=== PATIENT | female | born 1970 | race Caucasian/White ===

== ENCOUNTER 2024-08-19 06:00 | Inpatient (IN) | payer OTHER ==
[~2024-08-19] VITALS: Ht 160 cm; Wt 77.1 kg
[2024-08-19] MEDS ORDERED: ANESTHESIA TRAY IN PYXIS 1 EA TRAY MC ONE (07:06)
[2024-08-19] MEDS ORDERED: BUPIVACAINE MPF W/EPI 0.25% 30 ML VIAL ONE (07:13)
[2024-08-19] MEDS ORDERED: BUPIVACAINE MPF 0.5% W/EPI INJ 30 ML VIAL ONE (07:14)
[2024-08-19] MEDS ORDERED: LIDOCAINE 1%-EPI 1:100,000 20 ML VIAL ONE (07:14)
[2024-08-19] MEDS ORDERED: LIDOCAINE 0.5%-EPI 1:200,000 50 ML VIAL ONE (07:14)
[2024-08-19] MEDS ORDERED: HEMOSTATIC MATRIX 8 ML 1 EACH PAD MC ONE (07:15)
[2024-08-19] MEDS ORDERED: GELATIN SPONGE,ABSORBABLE 1 EA SPONGE TP ONE (07:15)
[2024-08-19] MEDS ORDERED: TRIAMCINOLONE ACETONIDE SUSP 40 MG/ML 1 ML ONE (07:15)
[2024-08-19] MEDS ORDERED: CEFAZOLIN 1 GM ONE (07:16)
[2024-08-19] MEDS ORDERED: FENTANYL PF 250MCG/5ML AMPUL ONE (07:20)
[2024-08-19] MEDS ORDERED: ROCURONIUM BROMIDE 50 MG/5 ML ONE (07:21)
[2024-08-19] MEDS ORDERED: FENTANYL PF 100MCG/2ML AMPUL ONE (10:23)
[2024-08-19 11:10] VITALS: BP 129/75; O2SAT 98
[2024-08-19] MEDS ORDERED: SENNOSIDES 8.6 MG TABLET PO PRN (11:30)
[2024-08-19] MEDS ORDERED: ZOLPIDEM TARTRATE 5 MG TABLET PO PRN (11:30)
[2024-08-19] MEDS ORDERED: ACETAMINOPHEN ES 500 MG TABLET PO PRN (11:30)
[2024-08-19] MEDS: IV NS W/20MEQ KCL 1L IV PRN (12:03)
[2024-08-19] MEDS ORDERED: ONDANSETRON HCL/PF 4 MG/2 ML VIAL IVP PRN (14:00)
[2024-08-19] MEDS ORDERED: Z GUARD REMEDY 4 OZ OINT TP PRN (14:00)
[2024-08-19] MEDS: ANCEF 1 GM/50 ML D5W IV SCH (15:25)
[2024-08-19 15:50] VITALS: BP 118/73; TEMP 97.3; O2SAT 99
[2024-08-19 20:00] VITALS: BP 118/72; TEMP 98.2; O2SAT 97
[2024-08-19] MEDS: ONDANSETRON HCL/PF 4 MG/2 ML VIAL IVP PRN (20:15)
[2024-08-19] MEDS: HYDROMORPHONE 1 MG/1 ML DISP.SYRIN IV PRN (20:15)
[2024-08-19 20:40] VITALS: BP 118/72; TEMP 98.2; O2SAT 97
[2024-08-20] MEDS ORDERED: IV PREMIX NS +20MEQ KCL 1 L IV ONE (02:34)
[2024-08-20 06:38] LABS: HEMATOCRIT 33 % (33-45); HEMOGLOBIN 10.9 g/dL (11.5-14.8); LYMPHOCYTES # (AUTO) 1.2 K/uL (0.8-4.8); LYMPHOCYTES % (AUTO) 10.2 % (20.0-44.0); MEAN CORPUSCULAR HEMOGLOBIN 28 PG (26.0-33.0); MEAN CORPUSCULAR HGB CONC 33 g/dl (31.0-36.0); MEAN CORPUSCULAR VOLUME 85 fL (82-100); MONOCYTES # (AUTO) 0.7 K/uL (0.1-1.30); MONOCYTES % (AUTO) 5.7 % (2.0-12.0); NEUTROPHILS # (AUTO) 9.9 K/uL (1.8-8.9); NEUTROPHILS % (AUTO) 84.1 % (43.0-81.0); PLATELET COUNT (AUTO) 195 K/uL (150-450); RED BLOOD CELL COUNT(AUTO) 3.89 MIL/uL (4.0-5.2); RED CELL DISTRIBUTION WIDTH 14.4 % (11.5-15.0); WHITE BLOOD COUNT (AUTO) 11.8 K/uL (4.3-11.0)
[2024-08-20 06:55] LABS: CALCIUM, SERUM 8.8 mg/dL (8.5-10.1); CREATININE 0.7 mg/dL (0.6-1.3); PHOSPHORUS 3.7 mg/dL (2.5-4.9); POTASSIUM 4.1 mmol/L (3.5-5.1)
[2024-08-20 08:00] VITALS: BP 112/69; TEMP 98.1; O2SAT 98
[2024-08-20] MEDS: DOCUSATE SODIUM 250 MG CAPSULE PO PRN (08:22)
[2024-08-20 16:00] VITALS: BP 113/71; TEMP 98.4; O2SAT 98
[2024-08-20] MEDS: BISACODYL SUPP (10 MG) 10 MG/SUPP.RECT SUPP.RECT RC ONE (16:03)
[2024-08-20 17:36] VITALS: BP 113/71; TEMP 98.4; O2SAT 95
[2024-08-20] MEDS: HYDROCODONE/APAP 10/325MG TABLET PO PRN (17:36)
[2024-08-20 20:00] VITALS: BP 116/78; TEMP 98.1; O2SAT 95
[2024-08-20 21:20] VITALS: BP 116/78; TEMP 95
[2024-08-21 07:00] VITALS: BP 134/77; TEMP 98.1; O2SAT 95
[2024-08-21] MEDS: ACETAMINOPHEN 325 MG TABLET PO PRN (15:02)
[2024-08-21 16:00] VITALS: BP 152/92; TEMP 97.7; O2SAT 97
[2024-08-21 20:00] VITALS: BP 139/85; TEMP 97.9; O2SAT 96
[2024-08-22 01:22] VITALS: BP 129/84; TEMP 97.9; O2SAT 95
[2024-08-22 07:00] VITALS: BP 149/97; TEMP 97.7; O2SAT 100
[2024-08-22 16:00] VITALS: BP 161/88; TEMP 97.9; O2SAT 98
[2024-08-22 18:30] VITALS: BP 139/88; TEMP 98; O2SAT 98
[2024-08-22 20:00] VITALS: BP 152/83; TEMP 98.2; O2SAT 96
[2024-08-23 08:46] VITALS: BP 139/92; TEMP 98.1; O2SAT 98
== END 2024-08-23 12:30 | disposition home health service (06) | DRG 520 ==
LOC: DS 06:00 → MED 06:03 → DS 08-20 13:28 → MED 08-20 13:29
PROVIDERS: ADMIT Nurse Practitioner Acute Care; ATTEND Nurse Practitioner Acute Care
PROC: 01NR0ZZ Release Sacral Nerve, Open Approach (ICD-10-PCS; 2024-08-19)
PROC: 0SB40ZZ Excision of Lumbosacral Disc, Open Approach (ICD-10-PCS; principal; 2024-08-19 07:30)
PROC: 01NB0ZZ Release Lumbar Nerve, Open Approach (ICD-10-PCS; 2024-08-19 07:30)
DX: M51.17 Intervertebral disc disorders with radiculopathy, lumbosacral region (principal); E78.5 Hyperlipidemia, unspecified; I10 Essential (primary) hypertension; E66.9 Obesity, unspecified; R33.9 Retention of urine, unspecified; M48.07 Spinal stenosis, lumbosacral region; Z90.710 Acquired absence of both cervix and uterus; Z88.6 Allergy status to analgesic agent; Z90.49 Acquired absence of other specified parts of digestive tract; Z98.890 Other specified postprocedural states; Z68.30 Body mass index [BMI] 30.0-30.9, adult
CPT/HCPCS: 36415; 72100-TC; 80048-TC; 83735-TC; 84100-TC; 85025-TC; 87081-TC; 97116-TC; 97530-TC; A4223; G0378; J0461; J0690; J1100; J1171; J2405; J2765; J3010; J3480; J3490; J7030; J7060